=== PATIENT | male | born 1980 | race Two or more races ===

== ENCOUNTER 2017-04-29 09:39 | Inpatient (IN) | payer MEDICAID ==
[~2017-04-29] VITALS: Ht 175.3 cm; Wt 59.0 kg
[2017-04-29] VITALS (13 sets, daily range): BP systolic 93–118; BP diastolic 54–82
[2017-04-29] MEDS ORDERED: Sodium Chloride 500ML 500 ML IV ONE (10:01)
[2017-04-29] MEDS ORDERED: Morphine Sulfate 4mg/ml Inj IVP ONE (10:15)
[2017-04-29 10:21] LABS: HEMATOCRIT 49.2 % (42.0-52.0); HEMOGLOBIN 15.7 G/DL (14.2-18.0); MEAN CORPUSCULAR VOLUME 88 FL (80-99); PLATELET COUNT 242 K/UL (150-450); RED BLOOD COUNT 5.61 M/UL (4.70-6.10); RED CELL DISTRIBUTION WIDTH 12.9 % (11.6-14.8); WHITE BLOOD COUNT 17.5 K/UL (4.8-10.8)
--- NOTE | 2017-04-29 10:27 | Emergency Room Report ---
History of Present Illness General Chief Complaint: Abdominal Pain Source: Patient Present Illness HPI 36-year-old male presents ED complaining of abdominal pain. Started a few days ago but getting progressively worse. mid abdomen, radiating to lower abdomen, sharp, 8/10, nonradiating. Denies chest pain shortness breath. Denies fevers or chills. Denies nausea or vomiting. No other aggravating relieving factors. Denies any other associated symptoms Allergies: Coded Allergies: No Known Allergies (Unverified , 04/29/17) Patient History Past Medical History: none Past Surgical History: none Pertinent Family History: none Social History: Denies: smoking, alcohol use, drug use Immunizations: UTD Reviewed Nursing Documentation: PMH: Agreed, PSxH: Agreed Nursing Documentation-PMH Past Medical History: No Stated History Review of Systems All Other Systems: negative except mentioned in HPI Physical Exam Vital Signs Date Time Temp Pulse Resp B/P (MAP) Pulse Ox O2 Delivery O2 Flow Rate FiO2 04/29/17 09:42 99.3 121 18 111/64 95 Room Air Sp02 EP Interpretation: reviewed, normal General Appearance: alert, GCS 15, non-toxic, mild distress Head: normocephalic, atraumatic Eyes: bilateral eye normal inspection, bilateral eye PERRL ENT: hearing grossly normal, normal pharynx, no angioedema, normal voice Neck: full range of motion, supple/symm/no masses Respiratory: chest non-tender, lungs clear, normal breath sounds, speaking full sentences Cardiovascular #1: no edema, tachycardia Cardiovascular #2: 2+ carotid (R), 2+ carotid (L), 2+ radial (R), 2+ radial (L) , 2+ dorsalis pedis (R), 2+ dorsalis pedis (L) Gastrointestinal: normal bowel sounds, soft, non-distended, no guarding, no rebound, tenderness - mid-abdomen, lower abdomen Rectal: deferred Genitourinary: normal inspection, no CVA tenderness Musculoskeletal: back normal, gait/station normal, normal range of motion, non- tender Neurologic: alert, oriented x3, responsive, motor strength/tone normal, sensory intact, speech normal Psychiatric: judgement/insight normal, memory normal, mood/affect normal, no suicidal/homicidal ideation Reflexes: 3+ bicep (R), 3+ bicep (L), 3+ tricep (R), 3+ tricep (L), 3+ knee (R) , 3+ knee (L) Skin: normal color, no rash, warm/dry, well hydrated Lymphatic: no adenopathy Medical Decision Making Diagnostic Impression: Primary Impression: Appendicitis, acute Qualified Codes: K35.3 - Acute appendicitis with localized peritonitis ER Course Hospital Course 36-year-old M presents to ED with lower abdominal pain Differential diagnoses include: Appendicitis, cholecystitis, small bowel obstruction Clinical course Patient placed on stretcher. lunchroom monitor. After initial history and physical I ordered labs, IV fluids, UA, pain medication and CT scan Labs - leukocytosis noted, Hb/Hct stable. electrolytes ok. UA unremarkable CT abdomen and pelvis - appendicits no perf Antibiotics given. patient made NPO. Case discussed with Dr. Dick and he agreed to take the patient to the OR. Case discussed with Dr. Lomeli and he agreed to accept the patient to his service for further care and support I feel this is a highly complex case requiring extensive working including EKG/ Rhythm strip, Xray/CT/US, Blood/urine lab work, repeat exams while in ED, and administration of strong opiates/narcotics for pain control, admission to hospital or close patient follow up. Diagnosis - appendicitis Patient taken to OR in serious condition Labs Test 04/29/17 09:50 04/29/17 10:03 04/29/17 11:35 Urine Color Yellow Urine Appearance Clear Urine pH 6 (4.5-8.0) Urine Specific [place] 1.015 (1.005-1.035) Urine Protein 2+ (NEGATIVE) Urine Glucose (UA) Negative (NEGATIVE) Urine Ketones Negative (NEGATIVE) Urine Occult Blood 2+ (NEGATIVE) Urine Nitrite Negative (NEGATIVE) Urine Bilirubin Negative (NEGATIVE) Urine Urobilinogen 1 MG/DL (0.0-1.0) Urine Leukocyte Esterase Negative (NEGATIVE) Urine RBC 10-15 /HPF (0 - 0) Urine WBC 0-2 /HPF (0 - 0) Urine Squamous Epithelial Cells Occasional /LPF Urine Bacteria Occasional /HPF (NONE) Urine Mucus Moderate /LPF (NONE/OCC) White Blood Count 17.5 K/UL (4.8-10.8) Red Blood Count 5.61 M/UL (4.70-6.10) Hemoglobin 15.7 G/DL (14.2-18.0) Hematocrit 49.2 % (42.0-52.0) Mean Corpuscular Volume 88 FL (80-99) Mean Corpuscular Hemoglobin 28.0 PG (27.0-31.0) Mean Corpuscular Hemoglobin Concent 32.0 G/DL (32.0-36.0) Red Cell Distribution Width 12.9 % (11.6-14.8) Platelet Count 242 K/UL (150-450) Mean Platelet Volume 7.8 FL (6.5-10.1) Neutrophils (%) (Auto) % (45.0-75.0) Lymphocytes (%) (Auto) % (20.0-45.0) Monocytes (%) (Auto) % (1.0-10.0) Eosinophils (%) (Auto) % (0.0-3.0) Basophils (%) (Auto) % (0.0-2.0) Differential Total Cells Counted 100 Neutrophils % (Manual) 90 % (45-75) Lymphocytes % (Manual) 6 % (20-45) Monocytes % (Manual) 4 % (1-10) Eosinophils % (Manual) 0 % (0-3) Basophils % (Manual) 0 % (0-2) Band Neutrophils 0 % (0-8) Platelet Estimate Adequate Platelet Morphology Normal Red Blood Cell Morphology Normal Sodium Level 137 MMOL/L (136-145) Potassium Level 3.7 MMOL/L (3.5-5.1) Chloride Level 98 MMOL/L (98-107) Carbon Dioxide Level 30 MMOL/L (21-32) Anion Gap 9 mmol/L (5-15) Blood Urea Nitrogen 10 mg/dL (7-18) Creatinine 1.1 MG/DL (0.55-1.30) Estimat Glomerular Filtration Rate > 60 mL/min (>60) Glucose Level 144 MG/DL (74-106) Calcium Level 9.6 MG/DL (8.5-10.1) Total Bilirubin 0.9 MG/DL (0.2-1.0) Aspartate Amino Transf (AST/SGOT) 8 U/L (15-37) Alanine Aminotransferase (ALT/SGPT) 14 U/L (12-78) Alkaline Phosphatase 91 U/L (46-116) Total Protein 9.1 G/DL (6.4-8.2) Albumin 3.8 G/DL (3.4-5.0) Globulin 5.3 g/dL Albumin/Globulin Ratio 0.7 (1.0-2.7) Lipase 99 U/L (73-393) Prothrombin Time 11.7 SEC (9.30-11.50) Prothromb Time International Ratio 1.1 (0.9-1.1) Activated Partial Thromboplast Time 30 SEC (23-33) CT/MRI/US Diagnostic Results CT/MRI/US Diagnostic Results : Imaging Test Ordered: CT A/P Impression acute appendicitis - no perf Last Vital Signs Date Time Temp Pulse Resp B/P (MAP) Pulse Ox O2 Delivery O2 Flow Rate FiO2 04/29/17 09:42 99.3 121 18 111/64 95 Room Air Status: improved Disposition: ADMITTED INPATIENT Condition: Serious Scripts No Active Prescriptions or Reported Meds Referrals: NOT CHOSEN ISMA/,REFERRING (PCP) CHI BOYLE M.D. Apr 29, 2017 10:27
[2017-04-29 10:28] LABS: ANION GAP 9 mmol/L (5-15); BLOOD UREA NITROGEN 10 mg/dL (7-18); CALCIUM 9.6 MG/DL (8.5-10.1); CARBON DIOXIDE 30 MMOL/L (21-32); CHLORIDE 98 MMOL/L (98-107); CREATININE 1.1 MG/DL (0.55-1.30); POTASSIUM 3.7 MMOL/L (3.5-5.1); SODIUM 137 MMOL/L (136-145)
[2017-04-29 10:32] LABS: ALANINE AMINOTRANSFERASE 14 U/L (12-78); ALBUMIN 3.8 G/DL (3.4-5.0); ALBUMIN/GLOBULIN RATIO 0.7 (1.0-2.7); ALKALINE PHOSPHATASE 91 U/L (46-116); ASPARTATE AMINO TRANSFERASE 8 U/L (15-37); BILIRUBIN,TOTAL 0.9 MG/DL (0.2-1.0)
[2017-04-29 10:34] LABS: APPEARANCE,URINE CLEAR; BILIRUBIN, URINE NEGATIVE (NEGATIVE); GLUCOSE, URINE (UA) NEGATIVE (NEGATIVE); KETONES,URINE NEGATIVE (NEGATIVE); LEUKOCYTE ESTERASE ,URINE NEGATIVE (NEGATIVE); NITRITE,URINE NEGATIVE (NEGATIVE); PH,URINE 6 (4.5-8.0); PROTEIN,URINE 2+ (NEGATIVE); UROBILINOGEN,URINE 1 MG/DL (0.0-1.0)
[2017-04-29 10:35] LABS: COLOR,URINE YELLOW
--- NOTE | 2017-04-29 11:19 | Diagnostic Imaging Report ---
Indication: Reason For Exam: ABD PAIN Technique: CT scan of the abdomen and pelvis was performed from the diaphragms to the symphysis pubis with intravenous contrast material only per specific request of the ordering physician.. 5 mm sections were generated. Axial, coronal, and sagittal images are presented. Dose: Total Dose Length Product - DLP [address] Dose Index - CTDIvol(s) 9.87 mGy. Automated exposure control was utilized for dose reduction. Comparison: None Findings: The liver is unremarkable. The gallbladder is normal. The spleen is normal. The pancreas is unremarkable. Adrenal glands and kidneys are normal. Aorta and inferior vena cava are normal caliber. Peritoneum is free of adenopathy. There is a tubular fluid-filled structure at the tip of the cecum with considerable inflammatory change around it. It measures at least 2 cm in size. It ends blindly. The bladder is collapsed. Prostate and seminal vesicles are normal. No significant pelvic fluid. Impression: Findings consistent with acute appendicitis. The CT scanner at [facility] is accredited by the [employer] and the scans are performed using protocols designed to limit radiation exposure to as low as reasonably achievable to attain images of sufficient resolution adequate for diagnostic evaluation.
[2017-04-29] MEDS ORDERED: Zosyn 3.375gm inj ONE (11:29)
[2017-04-29] MEDS ORDERED: Piperacillin/Tazobactam 3.375 GM in NS 110 ML IVPB ONE (11:30)
[2017-04-29 12:14] LABS: INR 1.1 (0.9-1.1)
--- NOTE | 2017-04-29 12:14 | Consultation ---
History of Present Illness General Date patient seen: Apr 29, 2017 Chief Complaint: Abdominal Pain Present Illness HPI 36M with acute abdominal RLQ pain with associated nausea and emesis. States that he has been having vague intermittent abdominal cramping for 2 weeks now but in the past 3 days developed acute constant sharp/cramping RLQ pain without radiation. Pain 10/10 at max. 1 day ago developed nausea and had non bloody emesis. Decided pain was too much and came to ED for evaluation. has never had similar symptoms. no other complaints. otherwise healthy. no pmhx. prior left hip surgery for dislocation when he was a child. no fhx. does not drink, smoke, or do drugs. no fever or chills. normal bm's. Allergies: Coded Allergies: No Known Allergies (Unverified , 04/29/17) Medication History No Active Prescriptions or Reported Meds Patient History History Provided By: Patient Healthcare decision maker Resuscitation status Advanced Directive on File Past Medical/Surgical History Past Medical/Surgical History: (1) Appendicitis, acute Review of Systems Constitutional: Denies: no symptoms, see HPI, chills, sweats, fever, malaise, weakness, other Eye: Denies: no symptoms, see HPI, eye pain, blurred vision, tearing, double vision, nose pain, nose congestion, acuity changes, discharge, other ENT: Denies: no symptoms, see HPI, ear pain, ear discharge, nose pain, nose congestion, throat pain, throat swelling, mouth pain, hearing loss, nasal discharge, other Respiratory: Denies: no symptoms, see HPI, cough, orthopnea, shortness of breath, stridor, wheezing, SILVA, sputum, other Cardiovascular: Denies: no symptoms, see HPI, chest pain, edema, palpitations, syncope, PND, other Gastrointestinal: Reports: abdominal pain, nausea, vomiting Genitourinary: Denies: no symptoms, see HPI, discharge, dysuria, frequency, hematuria, pain, retention, incontinence, urgency, vag bleed/dc, other Musculoskeletal: Denies: no symptoms, see HPI, back pain, gout, joint pain, joint swelling, muscle pain, muscle stiffness, other Skin: Denies: no symptoms, see HPI, rash, change in color, change in hair/nails , dryness, lesions, other Psychiatric: Denies: no symptoms, see HPI, prior hx, anxiety, depressed feelings, emotional problems, SI, HI, hallucinations, other Neurological: Denies: no symptoms, see HPI, headache, numbness, paresthesia, seizure, tingling, tremors, focal weakness, syncope, dizziness, other Endocrine: Denies: no symptoms, see HPI, excessive sweating, flushing, intolerance to temperature, increased thirst, increased urine, unexplained weight loss, other Hematologic/Lymphatic: Denies: no symptoms, see HPI, anemia, blood clots, easy bleeding, easy bruising, swollen glands, diathesis, other Physical Exam General Appearance: no apparent distress, alert Lines, tubes and drains: peripheral HEENT: normocephalic, atraumatic, PERRL Neck: supple, normal inspection Respiratory/Chest: lungs clear, normal breath sounds, no respiratory distress, no accessory muscle use Cardiovascular/Chest: normal peripheral pulses, normal rate, regular rhythm Abdomen: normal bowel sounds, soft, no organomegaly, no mass, guarding, rebound , tender, other - RLQ tenderness focal with rebound and guarding. Extremities: non-tender, normal inspection Skin Exam: normal pigmentation, warm/dry Neurologic: alert, oriented x 3, responsive Last 24 Hour Vital Signs Date Time Temp Pulse Resp B/P (MAP) Pulse Ox O2 Delivery O2 Flow Rate FiO2 04/29/17 11:48 121 19 118/73 98 Room Air 04/29/17 10:24 99.1 114 13 116/77 100 Room Air 04/29/17 09:42 99.3 121 18 111/64 95 Room Air Laboratory Tests Test 04/29/17 09:50 04/29/17 10:03 04/29/17 11:35 Urine Color Yellow Urine Appearance Clear Urine pH 6 (4.5-8.0) Urine Specific [place] 1.015 (1.005-1.035) Urine Protein 2+ (NEGATIVE) H Urine Glucose (UA) Negative (NEGATIVE) Urine Ketones Negative (NEGATIVE) Urine Occult Blood 2+ (NEGATIVE) H Urine Nitrite Negative (NEGATIVE) Urine Bilirubin Negative (NEGATIVE) Urine Urobilinogen 1 MG/DL (0.0-1.0) H Urine Leukocyte Esterase Negative (NEGATIVE) Urine RBC 10-15 /HPF (0 - 0) H Urine WBC 0-2 /HPF (0 - 0) Urine Squamous Epithelial Cells Occasional /LPF Urine Bacteria Occasional /HPF (NONE) Urine Mucus Moderate /LPF (NONE/OCC) H White Blood Count 17.5 K/UL (4.8-10.8) H Red Blood Count 5.61 M/UL (4.70-6.10) Hemoglobin 15.7 G/DL (14.2-18.0) Hematocrit 49.2 % (42.0-52.0) Mean Corpuscular Volume 88 FL (80-99) Mean Corpuscular Hemoglobin 28.0 PG (27.0-31.0) Mean Corpuscular Hemoglobin Concent 32.0 G/DL (32.0-36.0) Red Cell Distribution Width 12.9 % (11.6-14.8) Platelet Count 242 K/UL (150-450) Mean Platelet Volume 7.8 FL (6.5-10.1) Neutrophils (%) (Auto) % (45.0-75.0) Lymphocytes (%) (Auto) % (20.0-45.0) Monocytes (%) (Auto) % (1.0-10.0) Eosinophils (%) (Auto) % (0.0-3.0) Basophils (%) (Auto) % (0.0-2.0) Differential Total Cells Counted 100 Neutrophils % (Manual) 90 % (45-75) H Lymphocytes % (Manual) 6 % (20-45) L Monocytes % (Manual) 4 % (1-10) Eosinophils % (Manual) 0 % (0-3) Basophils % (Manual) 0 % (0-2) Band Neutrophils 0 % (0-8) Platelet Estimate Adequate Platelet Morphology Normal Red Blood Cell Morphology Normal Sodium Level 137 MMOL/L (136-145) Potassium Level 3.7 MMOL/L (3.5-5.1) Chloride Level 98 MMOL/L (98-107) Carbon Dioxide Level 30 MMOL/L (21-32) Anion Gap 9 mmol/L (5-15) Blood Urea Nitrogen 10 mg/dL (7-18) Creatinine 1.1 MG/DL (0.55-1.30) Estimat Glomerular Filtration Rate > 60 mL/min (>60) Glucose Level 144 MG/DL (74-106) H Calcium Level 9.6 MG/DL (8.5-10.1) Total Bilirubin 0.9 MG/DL (0.2-1.0) Aspartate Amino Transf (AST/SGOT) 8 U/L (15-37) L Alanine Aminotransferase (ALT/SGPT) 14 U/L (12-78) Alkaline Phosphatase 91 U/L (46-116) Total Protein 9.1 G/DL (6.4-8.2) H Albumin 3.8 G/DL (3.4-5.0) Globulin 5.3 g/dL Albumin/Globulin Ratio 0.7 (1.0-2.7) L Lipase 99 U/L (73-393) Prothrombin Time Pending Prothromb Time International Ratio Pending Activated Partial Thromboplast Time Pending Height (Feet): 5 Height (Inches): 9.00 Weight (Pounds): 130 Assessment/Plan Problem List: (1) Appendicitis, acute Assessment & Plan: 36M with acute appendicitis. Afebrile. HD stable, leukocytosis of 17k, RLQ focal tenderness with rebound and guarding. CT reviewed and not perforation noted. -To OR for lap vs open appendectomy -NPO IV fluids, IV Abx Consent ICD Codes: K35.80 - Unspecified acute appendicitis SNOMED: [id number] Qualifiers: Qualified Codes: K35.3 - Acute appendicitis with localized peritonitis Status: stable Darwin Dick Apr 29, 2017 12:14
[2017-04-29] MEDS ORDERED: Lidocaine 1% 10mg/ml/Epi 0.005mg/ml 30ml vial INJ ONE (12:43)
[2017-04-29] MEDS ORDERED: NS Irrig 1000ml IRRIG ONE (13:49)
[2017-04-29] MEDS ORDERED: Morphine Sulfate 4mg/ml Inj IVP PRN (14:45)
[2017-04-29] MEDS ORDERED: Ketorolac 30mg Inj ONE (15:00)
[2017-04-29] MEDS ORDERED: Propofol 200mg/20ml IV ONE (15:00)
[2017-04-29] MEDS ORDERED: Midazolam 2mg/2ml Inj ONE (15:00)
[2017-04-29] MEDS ORDERED: NS Irrig 1000ml ONE (15:00)
[2017-04-29] MEDS ORDERED: fentaNYL 100 mcg/2 mL IV ONE (15:00)
[2017-04-29] MEDS ORDERED: LR 1000ml ONE (15:00)
[2017-04-29] MEDS ORDERED: Zemuron 50mg/5ml Inj IV ONE (15:00)
[2017-04-29] MEDS ORDERED: Metoclopramide 10mg/2ml Inj ONE (15:00)
[2017-04-29] MEDS ORDERED: Glycopyrrolate 0.2mg/ml 1ml Vial ONE (15:00)
[2017-04-29] MEDS ORDERED: Sterile Water Irrig 1000ml IRRIG ONE (15:00)
[2017-04-29] MEDS ORDERED: Neostigmine 1mg/ml 10ml Inj ONE (15:00)
[2017-04-29] MEDS ORDERED: LR 1000ml 1,000 ML IVLG SCH (15:47)
--- NOTE | 2017-04-29 15:51 | Anethesia Preoperative Eval ---
Anesthesia Pre-op PMH/ROS General Date of Evaluation: Apr 29, 2017 Time of Evaluation: 15:15 ASA Score: ASA 2 Mallampati Score Class I : Soft palate, uvula, fauces, pillars visible Class II: Soft palate, uvula, fauces visible Class III: Soft palate, base of uvula visible Class IV: Only hard plate visible Mallampati Classification: Class I Surgeon: Andrés Diagnosis: Acute Appy Surgical Procedure: Lap Appy Anesthesia History: none Family History: no anesthesia problems Allergies: Coded Allergies: No Known Allergies (Unverified , 04/29/17) Medications: see eMAR Anesthesia Pre-op Phys. Exam Physician Exam Last Vital Signs Date Time Temp Pulse Resp B/P (MAP) Pulse Ox O2 Delivery O2 Flow Rate FiO2 04/29/17 15:19 105 15 110/76 99 Room Air 04/29/17 15:17 99.3 Constitutional: NAD Neurologic: CN 2-12 intact Cardiovascular: RRR Respiratory: CTA Gastrointestinal: S/NT/ND Airway Exam Mallampati Score: Class I MO: full ROM: full Teeth: intact Anesthesia Pre-op A/P Labs Hematology Test 04/29/17 10:03 White Blood Count 17.5 K/UL (4.8-10.8) H Red Blood Count 5.61 M/UL (4.70-6.10) Hemoglobin 15.7 G/DL (14.2-18.0) Hematocrit 49.2 % (42.0-52.0) Mean Corpuscular Volume 88 FL (80-99) Mean Corpuscular Hemoglobin 28.0 PG (27.0-31.0) Mean Corpuscular Hemoglobin Concent 32.0 G/DL (32.0-36.0) Red Cell Distribution Width 12.9 % (11.6-14.8) Platelet Count 242 K/UL (150-450) Mean Platelet Volume 7.8 FL (6.5-10.1) Neutrophils (%) (Auto) % (45.0-75.0) Lymphocytes (%) (Auto) % (20.0-45.0) Monocytes (%) (Auto) % (1.0-10.0) Eosinophils (%) (Auto) % (0.0-3.0) Basophils (%) (Auto) % (0.0-2.0) Differential Total Cells Counted 100 Neutrophils % (Manual) 90 % (45-75) H Lymphocytes % (Manual) 6 % (20-45) L Monocytes % (Manual) 4 % (1-10) Eosinophils % (Manual) 0 % (0-3) Basophils % (Manual) 0 % (0-2) Band Neutrophils 0 % (0-8) Platelet Estimate Adequate Platelet Morphology Normal Red Blood Cell Morphology Normal Coagulation Test 04/29/17 11:35 Prothrombin Time 11.7 SEC (9.30-11.50) H Prothromb Time International Ratio 1.1 (0.9-1.1) Activated Partial Thromboplast Time 30 SEC (23-33) Chemistry Test 04/29/17 10:03 Sodium Level 137 MMOL/L (136-145) Potassium Level 3.7 MMOL/L (3.5-5.1) Chloride Level 98 MMOL/L (98-107) Carbon Dioxide Level 30 MMOL/L (21-32) Anion Gap 9 mmol/L (5-15) Blood Urea Nitrogen 10 mg/dL (7-18) Creatinine 1.1 MG/DL (0.55-1.30) Estimat Glomerular Filtration Rate > 60 mL/min (>60) Glucose Level 144 MG/DL (74-106) H Calcium Level 9.6 MG/DL (8.5-10.1) Total Bilirubin 0.9 MG/DL (0.2-1.0) Aspartate Amino Transf (AST/SGOT) 8 U/L (15-37) L Alanine Aminotransferase (ALT/SGPT) 14 U/L (12-78) Alkaline Phosphatase 91 U/L (46-116) Total Protein 9.1 G/DL (6.4-8.2) H Albumin 3.8 G/DL (3.4-5.0) Globulin 5.3 g/dL Albumin/Globulin Ratio 0.7 (1.0-2.7) L Lipase 99 U/L (73-393) Risk Assessment & Plan Plan: GA Pre-Antibiotics Given Within 1 Hr of Incision: Dale Ghotra M.D. Apr 29, 2017 15:51
--- NOTE | 2017-04-29 15:52 | Immediate Post-Op Evaluation ---
Immediate Post-Op Evalulation Immediate Post-Op Evalulation Procedure: Lap Appy Date of Evaluation: Apr 29, 2017 Time of Evaluation: 17:00 IV Fluids: 1000 Blood Products: 0 Estimated Blood Loss: 5 Urinary Output: 0 Blood Pressure Systolic: 126 Blood Pressure Diastolic: 78 Pulse Rate: 101 Respiratory Rate: 21 O2 Sat by Pulse Oximetry: 99 Temperature (Fahrenheit): 98 Pain Score (1-10): 0 Nausea: No Vomiting: No Patient Status: awake, reacts, no response, patent, extubated Hydration Status: adequate Given Within 1 Hr of Incision: Dale Ghotra M.D. Apr 29, 2017 15:52
[2017-04-29] MEDS ORDERED: Ketorolac 30mg Inj IV PRN ×2 (16:00→16:45)
[2017-04-29] MEDS ORDERED: Hydromorphone 0.5mg/0.5ml inj IVP PRN ×2 (16:00→16:45)
[2017-04-29] MEDS ORDERED: fentaNYL 100 mcg/2 mL IV PRN (16:00)
[2017-04-29] MEDS ORDERED: Midazolam 2mg/2ml Inj IVP PRN (16:00)
--- NOTE | 2017-04-29 16:40 | Pre-Procedure Note/Attestation ---
Pre-Procedure Note/Attestation Complete Prior to Procedure Planned Procedure: not applicable Procedure Narrative: lap appy Indications for Procedure Pre-Operative Diagnosis: acute appendicitis Attestation I attest that I discussed the nature of the procedure; its benefits; risks and complications; and alternatives (and the risks and benefits of such alternatives ), prior to the procedure, with the patient (or the patient's legal provider relations representative). I attest that, if there was a reasonable possibility of needing a blood transfusion, the patient (or the patient's legal provider relations representative) was given the [facility] standardized written summary, pursuant to the Jose Emma Blood Safety Act ([place] Health and Safety Code # 1645, as amended). I attest that I re-evaluated the patient just prior to the surgery and that there has been no change in the patient's H&P, except as documented below: Darwin Dick Apr 29, 2017 16:40
--- NOTE | 2017-04-29 16:41 | Brief Operative Note ---
Immediate Post Operative Note Operative Note Pre-op Diagnosis: acute appendicitis Procedure: laparoscopic appendectomy Post-op Diagnosis: same as pre-op plus - acute appendicitis with periappendiceal abscess Findings: consistent w/pre-op dx studies Surgeon: kristin Anesthesiologist: yoshi Anesthesia: general Specimen: yes - appendix Complications: none Condition: stable Fluids: see records Estimated Blood Loss: minimal Drains: GABRIELLA Implant(s) used?: No Darwin Dick Apr 29, 2017 16:41
[2017-04-29] MEDS ORDERED: HYDROmorphone 1mg/ml Carpuject IVP PRN (16:45)
[2017-04-29] MEDS ORDERED: DiphenhydrAMINE 50mg/ml Inj IVP PRN (16:45)
[2017-04-29] MEDS ORDERED: Norco 5mg/325mg tab ORAL PRN (16:45)
[2017-04-29] MEDS ORDERED: HYDROcodone/Acetamin 10/325 tab ORAL PRN (16:45)
[2017-04-29] MEDS: D5 1/2NS w/KCl 20mEq 1,000 ML IV SCH (21:32)
--- NOTE | 2017-04-29 23:45 | Operative Note - Dictated ---
DATE OF OPERATION: 04/29/2017 PREOPERATIVE DIAGNOSIS: Acute appendicitis. POSTOPERATIVE DIAGNOSIS: Acute appendicitis with periappendiceal abscess. OPERATION PERFORMED: Laparoscopic appendectomy. ATTENDING SURGEON: Darwin Dick M.D. LIQUEFIED NATURAL GAS OPERATOR: None. ANESTHESIOLOGIST: Dale Salas M.D. ANESTHESIA: General COLLAR FELLER. ESTIMATED BLOOD LOSS: Minimal. SPECIMENS: Appendix sent to pathology for review. DRAINS: A 19-Angolan GABRIELLA Florin drain left in the pelvis and right lower quadrant. ANTIBIOTICS: The patient is on scheduled Zosyn 3.375 mg q.8 h. COMPLICATIONS: None. WOUND CLASSIFICATION: Class III. COUNTS: Sponge and needle count correct x2. IV FLUIDS: Please see anesthesia records. INDICATIONS FOR PROCEDURE: This is a 36-year-old male, who presented to the emergency department complaining of abdominal pain. The patient states that approximately three days ago, he began to have some acute right lower quadrant abdominal pain and in the past 24 hours it has significantly worsened with associated nausea and nonbloody emesis. The patient cannot tolerate the pain anymore and came to emergency department for evaluation. In the ED, the patient was noted to have a leukocytosis of 17,000. CT scan demonstrated acute appendicitis with inflammation around the appendix, but no definitive signs of perforation or significant abscess. Appendectomy was indicated and recommended. Risks, benefits, and alternatives were discussed with the patient in detail, who expressed understanding and consented to laparoscopic, possible open appendectomy, which was performed today. OPERATIVE NOTE: The patient was taken to the operating and placed on the operating table in supine position with bilateral arms out. All bony prominences were well padded with gel pads. Preoperative time-out was taken identifying the patient, procedure, operative staff, and surgical staff. General anesthesia was induced and the patient was intubated. SCDs were placed. No Hunt catheter was placed given the patient voided prior to entering the operating room. The patient was on intravenous antibiotics prior to entering the operating room. The abdomen was clipped, prepped, and draped in standard surgical fashion. We began by making an infraumbilical incision. Incision was carried down through the subcutaneous tissue to the fascia. The fascia was elevated and incised. Entry into the abdomen was obtained using the open Curt technique without complication. A #0 Vicryl suture was placed in a [id number] fashion for later fascial closure. A Curt trocar was inserted and the abdomen was insufflated to 12-15 mmHg. The patient tolerated the insufflation well. Laparoscope was entered and the abdomen was inspected. No injury from initial trocar placement was noted. Secondary trocars were placed in the following positions beginning with a 12 mm trocar in the left lower quadrant and a 5 mm trocar in the suprapubic region. The abdomen was inspected, no initial abnormalities were noted. The patient was then placed in Trendelenburg with the left side down. The appendix was then identified in the right lower quadrant with significant periappendiceal inflammation. The tip of the appendix was identified and grasped. The cecum was identified and the teniae was transverse to the confluence where the base of appendix was noted and freeing the appendix from its adhesions to the peritoneal surfaces. A small purulent collection was noted and evacuated. Approximately 5 to 10 mL of periappendiceal abscess was evacuated. The remainder of the freeing of the appendix was otherwise uncomplicated. Once the appendix was freed, the appendix, mesoappendix could be identified from the tip to the base of the appendix. A window was made in the base of the appendix using a Charmaine. Once this window was made, a laparoscopic linear stapler was entered and the mesoappendix was divided without complication. The appendix was then reinspected and ensured that the whole appendix down to the base was noted. Following this, a second laparoscopic linear stapler was entered and the base of the appendix was ligated and divided without complication. The appendix was then placed in an endoscopic retrieval bag and removed through the umbilical port. The abdomen was then reinspected and good hemostasis was noted. The right lower quadrant and pelvis were copiously irrigated given the periappendiceal abscess were copiously irrigated with sterile normal saline. Following this, no other abnormalities were noted. Given the periappendiceal abscess, a decision was made to leave a drain in the pelvis in the right lower quadrant. A 19-Angolan Florin drain was entered through the left lower quadrant port as the port was removed. The drain was placed in the pelvis in the right lower quadrant. Drain was tacked to the skin using a 2-0 nylon suture. Following this, the 5 mm secondary trocar was then removed as well as the umbilical trocar. The abdomen was allowed to desufflate. The wounds were cleansed. The Vicryl from fascial suture was locked and closed. The remaining skin incisions were closed using 4-0 Monocryl subcuticular interrupted sutures. Local anesthetic was given throughout the procedure at the skin incision port sites. Steri-Strips and dressings were applied. The patient tolerated the procedure well and was extubated and taken to postanesthesia care unit in stable condition. Darwin Dick M.D. DR: KORY JOB#: [id number] CC:
[2017-04-30 00:24] VITALS: BP 118/83
[2017-04-30] MEDS: Piperacillin/Tazobactam 3.375 GM in NS 110 ML IVPB SCH ×3 (00:33→16:38)
--- NOTE | 2017-04-30 03:00 | History and Physical Report ---
DATE OF ADMISSION: 04/29/2017 CHIEF COMPLAINT: Acute appendicitis. HISTORY OF PRESENT ILLNESS: The patient is a 36-year-old male with no past medical history, who presented with complaints of 3-4 days of right lower quadrant abdominal pain. He eventually presented to the emergency room because pain persisted. He had white count of 17,000. He had low-grade fever. His CT scan showed acute appendicitis. The patient is now status post laparoscopic appendectomy. He is currently awake and alert. Denies any pain. PAST MEDICAL HISTORY: None. PAST SURGICAL HISTORY: None. CURRENT MEDICATIONS: None. FAMILY HISTORY: None. SOCIAL HISTORY: Negative for tobacco, ethanol, or drugs. REVIEW OF SYSTEMS: Negative except for abdominal pain. PHYSICAL EXAMINATION: VITAL SIGNS: Temperature 99.6, pulse 102, respirations 20, and blood pressure 118/81. GENERAL: The patient is in no apparent distress. HEART: Regular rate and rhythm. LUNGS: Clear. ABDOMEN: Soft. Surgical incisions appear clean. There is a small drain in the left lower quadrant. LABORATORY DATA: White count 17. CMP was unremarkable. Coagulation studies normal. UA clear. ASSESSMENT: This is a pleasant male, now admitted for acute appendicitis, now status post laparoscopic appendectomy, tolerated well. PLAN: IV fluids, pain control, p.o. when cleared by Surgery. Mik Lomeli M.D. DR: RANI JOB#: [id number] CC:
[2017-04-30 04:18] VITALS: BP 120/79
[2017-04-30] MEDS: D5 1/2NS w/KCl 20mEq 1,000 ML IV SCH ×2 (05:50→15:30)
[2017-04-30 07:23] LABS: ANION GAP 6 mmol/L (5-15); BLOOD UREA NITROGEN 9 mg/dL (7-18); CALCIUM 8.8 MG/DL (8.5-10.1); CARBON DIOXIDE 29 MMOL/L (21-32); CHLORIDE 102 MMOL/L (98-107); CREATININE 0.9 MG/DL (0.55-1.30); POTASSIUM 3.7 MMOL/L (3.5-5.1); SODIUM 137 MMOL/L (136-145)
[2017-04-30 07:25] LABS: BASOPHILS % (AUTO) 0.3 % (0.0-2.0); EOSINOPHILS % (AUTO) 0.9 % (0.0-3.0); HEMATOCRIT 38.3 % (42.0-52.0); HEMOGLOBIN 12.5 G/DL (14.2-18.0); LYMPHOCYTES % (AUTO) 11.8 % (20.0-45.0); MEAN CORPUSCULAR VOLUME 88 FL (80-99); MONOCYTES % (AUTO) 7.7 % (1.0-10.0); NEUTROPHILS % (AUTO) 79.3 % (45.0-75.0); PLATELET COUNT 210 K/UL (150-450); RED BLOOD COUNT 4.36 M/UL (4.70-6.10); WHITE BLOOD COUNT 14.6 K/UL (4.8-10.8)
[2017-04-30 08:00] VITALS: BP 121/85
--- NOTE | 2017-04-30 11:28 | General Progress Note ---
Assessment/Plan Problem List: (1) Appendicitis, acute ICD Codes: K35.80 - Unspecified acute appendicitis SNOMED: 89167152 Qualifiers: Qualified Codes: K35.3 - Acute appendicitis with localized peritonitis Status: stable Assessment/Plan abx pain rx pos as tolerated dc per surgery Subjective ROS Limited/Unobtainable: No Constitutional: Reports: malaise, weakness HEENT: Reports: no symptoms Cardiovascular: Reports: no symptoms Respiratory: Reports: no symptoms Gastrointestinal/Abdominal: Reports: abdominal pain Genitourinary: Reports: no symptoms Neurologic/Psychiatric: Reports: no symptoms Endocrine: Reports: no symptoms Hematologic/Lymphatic: Reports: no symptoms Allergies: Coded Allergies: No Known Allergies (Unverified , 04/29/17) All Systems: reviewed and negative except above Subjective post op pain. starting breakfast Objective Last 24 Hour Vital Signs Date Time Temp Pulse Resp B/P (MAP) Pulse Ox O2 Delivery O2 Flow Rate FiO2 04/30/17 08:00 97.9 89 19 121/85 99 04/30/17 04:18 98.6 93 19 120/79 98 04/30/17 02:29 98.2 04/30/17 01:31 98.2 04/30/17 00:24 100.2 96 18 118/83 99 04/29/17 20:10 99.9 120 19 118/82 98 04/29/17 18:00 99.6 102 20 118/81 98 Nasal Cannula 3.0 04/29/17 17:45 99.4 90 22 108/75 100 Nasal Cannula 3.0 04/29/17 17:27 91 22 108/72 100 Nasal Cannula 3.0 04/29/17 17:15 90 20 103/74 100 Nasal Cannula 3.0 04/29/17 17:00 86 20 103/54 100 Nasal Cannula 3.0 04/29/17 16:51 90 20 93/65 100 Nasal Cannula 3.0 04/29/17 16:46 81 20 96/61 100 Simple Mask 8.0 04/29/17 16:41 98.6 81 20 96/61 100 Simple Mask 8.0 04/29/17 15:52 101 21 99 04/29/17 15:19 105 15 110/76 99 Room Air 04/29/17 15:17 99.3 105 15 110/76 99 Room Air 04/29/17 13:30 99.2 105 18 107/72 100 Room Air 04/29/17 11:48 121 19 118/73 98 Room Air Intake and Output 04/29/17 04/30/17 19:00 07:00 Intake Total 1760 ml Output Total 45 ml Balance 1715 ml Intake IV Total 1760 ml Output Drainage Total 40 ml Estimated Blood Loss 5 ml # Voids 1 1 Laboratory Tests 04/29/17 11:35: Prothrombin Time 11.7H, Prothromb Time International Ratio 1.1, Activated Partial Thromboplast Time 30 04/30/17 05:45: White Blood Count 14.6H, Red Blood Count 4.36L, Hemoglobin 12.5L, Hematocrit 38.3L, Mean Corpuscular Volume 88, Mean Corpuscular Hemoglobin 28.8, Mean Corpuscular Hemoglobin Concent 32.7, Red Cell Distribution Width 13.0, Platelet Count 210, Mean Platelet Volume 8.2, Neutrophils (%) (Auto) 79.3H, Lymphocytes ( %) (Auto) 11.8L, Monocytes (%) (Auto) 7.7, Eosinophils (%) (Auto) 0.9, Basophils (%) (Auto) 0.3, Sodium Level 137, Potassium Level 3.7, Chloride Level 102, Carbon Dioxide Level 29, Anion Gap 6, Blood Urea Nitrogen 9, Creatinine 0.9 , Estimat Glomerular Filtration Rate > 60, Glucose Level 119H, Calcium Level 8.8 Height (Feet): 5 Height (Inches): 9.00 Weight (Pounds): 130 General Appearance: WD/WN, alert Neck: supple Cardiovascular: normal rate, regular rhythm Respiratory/Chest: chest wall non-tender, lungs clear, normal breath sounds Edema: no edema noted Arm (L), no edema noted Arm (R), no edema noted Leg (L), no edema noted Leg (R), no edema noted Pedal (L), no edema noted Pedal (R), no edema noted Generalized MEGAN CABRAL Apr 30, 2017 11:28
[2017-04-30 12:00] VITALS: BP 115/77
--- NOTE | 2017-04-30 15:37 | General Progress Note ---
Progress Note Progress Note Surgery: POD #1 s/p lap appy for acute appendicitis with vickie-appedicial abscess. doing well. mild pain. no n/v/f/c/. comfortable. drain with serous output Advance diet as tolerated continue IV Abx until leukocytosis resolved and afebrile drain care ambulate and oob. Darwin Dick Apr 30, 2017 15:37
[2017-04-30 16:00] VITALS: BP 105/73
[2017-04-30 20:17] VITALS: BP 103/67
[2017-05-01] MEDS: Piperacillin/Tazobactam 3.375 GM in NS 110 ML IVPB SCH ×3 (00:36→16:16)
[2017-05-01 00:52] VITALS: BP 110/72
[2017-05-01 04:45] VITALS: BP 108/72
[2017-05-01 07:21] LABS: BASOPHILS % (AUTO) 0.5 % (0.0-2.0); EOSINOPHILS % (AUTO) 5.1 % (0.0-3.0); HEMATOCRIT 38.4 % (42.0-52.0); HEMOGLOBIN 12.7 G/DL (14.2-18.0); MEAN CORPUSCULAR VOLUME 88 FL (80-99); MONOCYTES % (AUTO) 11.5 % (1.0-10.0); NEUTROPHILS % (AUTO) 67.9 % (45.0-75.0); PLATELET COUNT 221 K/UL (150-450); RED BLOOD COUNT 4.34 M/UL (4.70-6.10); RED CELL DISTRIBUTION WIDTH 13.1 % (11.6-14.8); WHITE BLOOD COUNT 8.6 K/UL (4.8-10.8)
[2017-05-01 08:00] VITALS: BP 116/80
[2017-05-01 08:01] LABS: ALANINE AMINOTRANSFERASE 18 U/L (12-78); ALBUMIN 2.6 G/DL (3.4-5.0); ALBUMIN/GLOBULIN RATIO 0.6 (1.0-2.7); ALKALINE PHOSPHATASE 68 U/L (46-116); ANION GAP 8 mmol/L (5-15); ASPARTATE AMINO TRANSFERASE 10 U/L (15-37); BILIRUBIN,TOTAL 0.3 MG/DL (0.2-1.0); BLOOD UREA NITROGEN 8 mg/dL (7-18); CALCIUM 8.8 MG/DL (8.5-10.1); CARBON DIOXIDE 30 MMOL/L (21-32); CHLORIDE 102 MMOL/L (98-107); CREATININE 0.9 MG/DL (0.55-1.30); POTASSIUM 3.3 MMOL/L (3.5-5.1); SODIUM 140 MMOL/L (136-145)
--- NOTE | 2017-05-01 09:21 | General Progress Note ---
Assessment/Plan Problem List: (1) Appendicitis, acute ICD Codes: K35.80 - Unspecified acute appendicitis SNOMED: [id number] Qualifiers: Qualified Codes: K35.3 - Acute appendicitis with localized peritonitis Status: stable Assessment/Plan abx pain rx pos as tolerated laxatives dc per surgery Subjective ROS Limited/Unobtainable: No Constitutional: Reports: malaise, weakness HEENT: Reports: no symptoms Cardiovascular: Reports: no symptoms Respiratory: Reports: no symptoms Gastrointestinal/Abdominal: Reports: constipated Genitourinary: Reports: no symptoms Neurologic/Psychiatric: Reports: no symptoms Endocrine: Reports: no symptoms Hematologic/Lymphatic: Reports: no symptoms Allergies: Coded Allergies: No Known Allergies (Unverified , 04/29/17) All Systems: reviewed and negative except above Subjective minimal pain. tolerating po. no bm Objective Last 24 Hour Vital Signs Date Time Temp Pulse Resp B/P (MAP) Pulse Ox O2 Delivery O2 Flow Rate FiO2 05/01/17 04:45 97.9 98 20 108/72 97 05/01/17 00:52 98.1 98 18 110/72 96 04/30/17 20:17 98.3 102 17 103/67 95 04/30/17 16:00 98.0 81 18 105/73 97 04/30/17 12:00 98.0 89 18 115/77 97 Intake and Output 04/30/17 05/01/17 19:00 07:00 Intake Total 365.0 ml 360 ml Output Total 20 ml Balance 365.0 ml 340 ml Intake Oral 360 ml IV Total 365.0 ml Output Drainage Total 20 ml # Voids 2 Laboratory Tests 05/01/17 04:45: White Blood Count 8.6, Red Blood Count 4.34L, Hemoglobin 12.7L, Hematocrit 38.4L , Mean Corpuscular Volume 88, Mean Corpuscular Hemoglobin 29.3, Mean Corpuscular Hemoglobin Concent 33.1, Red Cell Distribution Width 13.1, Platelet Count 221, Mean Platelet Volume 7.5, Neutrophils (%) (Auto) 67.9, Lymphocytes (% ) (Auto) 15.0L, Monocytes (%) (Auto) 11.5H, Eosinophils (%) (Auto) 5.1H, Basophils (%) (Auto) 0.5, Sodium Level 140, Potassium Level 3.3L, Chloride Level 102, Carbon Dioxide Level 30, Anion Gap 8, Blood Urea Nitrogen 8, Creatinine 0.9, Estimat Glomerular Filtration Rate > 60, Glucose Level 115H, Calcium Level 8.8, Total Bilirubin 0.3, Aspartate Amino Transf (AST/SGOT) 10L, Alanine Aminotransferase (ALT/SGPT) 18, Alkaline Phosphatase 68, Total Protein 6.8, Albumin 2.6L, Globulin 4.2, Albumin/Globulin Ratio 0.6L Height (Feet): 5 Height (Inches): 9.00 Weight (Pounds): 130 Abdomen: normal bowel sounds, non tender, soft MEGAN CABRAL May 01, 2017 09:21
[2017-05-01] MEDS: Docusate 250mg cap ORAL SCH ×2 (09:30→18:02)
[2017-05-01 12:00] VITALS: BP 129/68
[2017-05-01] MEDS ORDERED: Milk of Magnesia 30ml Ud ORAL PRN ×2 (12:21→21:00)
--- NOTE | 2017-05-01 13:24 | General Progress Note ---
Progress Note Progress Note Surgery: POD #2 s/p lap appy for acute appendicitis with vickie-appendicial abscess. doing well. has cramping pain. small flatus this AM but no BM yet. afebrile , HD stable, leukocytosis resolved, labs okay. ambulatory. drain minimal and serous. drain d/c at bedside. diet as tolerated Bowel regimen as he is constipated. plan to d/c home later today Oral Abx Rx written. pain meds Rx, stool softeners Rx. follow up in 1 week with me for suture removal okay to shower. Darwin Dick May 01, 2017 13:24
[2017-05-01] MEDS ORDERED: AUGMENTIN 875-1 EAC1 ORAL (15:56)
[2017-05-01] MEDS ORDERED: NORCO 5-325 TA1 EAC1 ORAL ×2 (15:57→16:01)
[2017-05-01] MEDS ORDERED: METRONIDAZOLE500 MG ORAL (15:57)
[2017-05-01] MEDS ORDERED: COLACE100 MG ORAL (15:58)
[2017-05-01 16:00] VITALS: BP 123/68
[2017-05-01 20:00] VITALS: BP 111/77
--- NOTE | 2017-05-03 10:47 | Discharge Summary ---
Discharge Summary Hospital Course Date of Admission Apr 29, 2017 at 12:46 Date of Discharge May 01, 2017 at 20:30 Admitting Diagnosis appendicitis HPI Alex Bates is a 36 year old male who was admitted on Apr 29, 2017 at 12:46 for Appendicitis Hospital Course [id number] Discharge Discharge Disposition Patient was discharged to Home (01) Discharge Diagnoses: Neyda Aguilera NP May 03, 2017 10:47
--- NOTE | 2017-05-03 17:15 | Discharge Summary 2 SIG ---
DATE OF ADMISSION: 04/29/2017 DATE OF DISCHARGE: 05/01/2017 SENIOR GL ACCOUNTANT: Darwin Dick M.D. BRIEF HOSPITAL COURSE: The patient is a 36-year-old male with no past medical history, presented with complaints of three to four days of right lower quadrant abdominal pain. On evaluation at ED, he was found to be febrile and WBC was elevated to 17.5. He had CT scan of the abdomen that showed acute appendicitis. Dr. Dick was consulted. He was placed on NPO and was given IV hydration. Also was started on Zosyn and was taken to OR and underwent laparoscopic appendectomy. Postoperatively, he was admitted to medical floor and was given pain management. He was continued with IV antibiotics due to periappendiceal abscess. First day postop, the patient was comfortable, drain with serous output. He was encouraged to ambulate. Diet was eventually advanced. Second day postop, there was minimal serous drainage. Drain was discontinued. He had flatus. He was cleared for discharge to continue oral antibiotics and stool softeners at home, to follow up with Dr. Dick in a week for suture removal. Advised no heavy lifting and okay to shower. FINAL DIAGNOSES: 1. Acute appendicitis with periappendiceal abscess. 2. Status post laparoscopic appendectomy. DISPOSITION: The patient was discharged home. DISCHARGE MEDICATIONS: Continue with Augmentin 875/125 b.i.d. and Flagyl 500 mg q.8 h. for five more days. Continue with Colace and [place] p.r.n. DISCHARGE INSTRUCTIONS: Follow up with Dr. Dick in a week for removal of sutures. Mik Lomeli M.D. I have been assigned to dictate discharge summary on this account and I was not involved in the patient's management. Neyda Aguilera N.P. DR: SHRUTHI JOB#: [id number] CC:
--- NOTE | 2017-05-14 14:04 | Cardiology Report ---
APPROVED REPORT EKG Measurement Heart [id number] AR [id number] Sinus tachycardia Otherwise normal ECG
== END 2017-05-01 20:30 | disposition home or self-care (01) | DRG 225 ==
LOC: EMR 09:51 → EDBEDREQ 12:41 → 3E 12:46
PROC: 0DTJ4ZZ Resection of Appendix, Percutaneous Endoscopic Approach (ICD-10-PCS; principal; 2017-04-29 14:00)
DX: K35.80 Unspecified acute appendicitis (principal)
CPT/HCPCS: 36415; 74177; 80048; 80053; 81003; 83690; 85007; 85025; 85610; 85730; 86850; 86900; 86901; 93005; 94003; 94150; 99285; J2250; J2405; J2710; J2765; J8499